=== PATIENT | female | born 1960 | race Caucasian/White ===

== ENCOUNTER 2019-09-25 05:25 | Inpatient (IN) ==
[2019-09-20 12:04] LABS: Basophils # 0.1 10*3/uL (0.0-0.2); Basophils % 0.9 % (0.0-0.8); Eosinophils # 0.2 10*3/uL (0.0-0.87); Eosinophils % 1.8 % (0.00-10.9); Hemoglobin 11.4 GM/DL (12.0-16.0); Immature Granulocytes % 0.2 %; Immature Granulocytes Absolute 0.02 #; Lymphocytes # 2.9 10*3/uL (1.4-4.0); Lymphocytes % 30.8 % (21.3-54.2); Mean Corpuscular Volume 86.6 FL (87-102); Mean Platelet Volume 10.1 FL (9.6-12.0); Neutrophils % 54.3 % (38.7-73.9); Platelet Count 269 T/CUMM (130-400); Red Blood Count 4.39 MC/CUMM (3.8-5.5); Red Cell Distribution Width 14.2 % (9.3-17.3); White Blood Count 9.4 T/CUMM (4-12)
[2019-09-20 12:17] LABS: Apearance,Urine Slightly Hazy (Clear); Bacteria,Urine Moderate /HPF (Few); Bilirubin,Urine Negative (Negative); Blood, Urine Negative (Negative); Glucose,Urine (UA) Negative (Negative); Ketones,Urine Negative (Negative); Mucus,Urine Occasional /LPF (Occasional); Nitrite,Urine Positive (Negative); Protein,Urine Negative; Squamous Epithelial Cell,Urine Occasional /HPF (0-10); Uric Acid Crystals,Urine Occasional /HPF (<1); Urine Color Yellow (Yellow); Urine Specific Gravity 1.019 (1.001-1.035); Urine Urobilinogen < 2.0 EU/DL (0.2-1.0); WBC,Urine 14 /HPF (0-6)
[2019-09-20 12:26] LABS: INR 1.1; PT Patient Result 12.3 SECS (9.6-12.2)
[2019-09-20 12:32] LABS: Bilirubin,Total 1.2 MG/DL (0.2-1.0); Calcium 8.9 MG/DL (8.5-10.1); Osmolality,Calculated 282.1 MOS/KG (273-304)
[2019-09-25] MEDS ORDERED: DIAZEPAM 5 MG TABLET PO ONE (06:00)
[2019-09-25] MEDS ORDERED: FAMOTIDINE 20 MG TABLET PO ONE (06:00)
[2019-09-25] MEDS ORDERED: GABAPENTIN 400 MG CAPSULE PO ONE (06:00)
[2019-09-25] MEDS ORDERED: LACTATED RINGERS 1,000 ML IV SCH (06:00)
[2019-09-25] MEDS ORDERED: ACETAMINOPHEN 500 MG TABLET PO ONE (06:00)
[2019-09-25] MEDS ORDERED: TRANEXAMIC ACID 1,000 MG/10 ML VIAL ONE (06:18)
[2019-09-25] MEDS ORDERED: NEOMYCIN/POLYMYXIN/BACITRACIN OINT 28.4 GM TUBE TOP ONE (06:18)
[2019-09-25] MEDS ORDERED: ACETAMINOPHEN 500 MG TABLET ONE (06:24)
[2019-09-25] MEDS ORDERED: FAMOTIDINE 20 MG TABLET ONE (06:24)
[2019-09-25] MEDS ORDERED: DIAZEPAM 5 MG TABLET ONE (06:24)
[2019-09-25] MEDS ORDERED: VANCOMYCIN 1,000 MG VIAL ONE (06:24)
[2019-09-25] MEDS ORDERED: GABAPENTIN 400 MG CAPSULE ONE (06:24)
[2019-09-25] MEDS ORDERED: DEXAMETHASONE 4 MG/1 ML VIAL ONE (06:26)
[2019-09-25] MEDS ORDERED: LIDOCAINE 1% 5 ML VIAL ONE (06:26)
[2019-09-25] MEDS ORDERED: EPINEPHrine 1 MG/ML VIAL ONE (06:26)
[2019-09-25] MEDS ORDERED: BUPIVACAINE 0.5% 50 ML VIAL ONE (06:26)
[2019-09-25] MEDS ORDERED: VANCOMYCIN INJ 1,000 MG in SODIUM CHLORIDE 0.9% 250 ML IV ONE ×2 (06:30→15:21)
[2019-09-25] MEDS ORDERED: ceFAZolin 2,000 MG in PREMIX 1 EACH IV ONE (06:30)
[2019-09-25] MEDS ORDERED: SCOPOLAMINE 1.5 MG PATCH TRANSDERM ONE ×2 (06:33→06:36)
[2019-09-25] MEDS ORDERED: ONDANSETRON 4 MG/2 ML VIAL IV PRN (07:20)
[2019-09-25] MEDS ORDERED: PROMETHAZINE 25 MG/1 ML VIAL IM PRN (07:20)
[2019-09-25] MEDS ORDERED: DEXTROSE 50% 25 GM/50 ML VIAL IV PRN (07:20)
[2019-09-25] MEDS ORDERED: ZALEPLON 5 MG CAPSULE PO PRN (07:20)
[2019-09-25] MEDS ORDERED: MAGNESIUM HYDROXIDE SUSP 30 ML UDCUP PO PRN (07:20)
[2019-09-25] MEDS ORDERED: diphenhydrAMINE CAP 25 MG CAPSULE PO PRN (07:20)
[2019-09-25] MEDS ORDERED: GLUCAGON 1 MG VIAL IM PRN (07:20)
[2019-09-25] MEDS ORDERED: GLYCOPYRROLATE 0.4 MG/2 ML VIAL ONE (09:01)
[2019-09-25] MEDS ORDERED: LIDOCAINE 2% 5 ML VIAL ONE (09:01)
[2019-09-25] MEDS ORDERED: KETOROLAC 30 MG/1 ML VIAL ONE (09:01)
[2019-09-25] MEDS ORDERED: fentaNYL 100 MCG/2 ML VIAL ONE (09:01)
[2019-09-25] MEDS ORDERED: ONDANSETRON 4 MG/2 ML VIAL ONE (09:01)
[2019-09-25] MEDS ORDERED: PROPOFOL 200 MG/20 ML VIAL IV ONE (09:01)
[2019-09-25] MEDS ORDERED: MIDAZOLAM 2 MG/2 ML VIAL ONE (09:01)
[2019-09-25] MEDS ORDERED: PHENYLEPHRINE 1 MG/10 ML SYRINGE IV ONE (09:02)
[2019-09-25] MEDS ORDERED: SODIUM CHLORIDE 0.9% 100 ML IV ONE (09:02)
[2019-09-25] MEDS ORDERED: LACTATED RINGERS 1,000 ML IV ONE (09:02)
[2019-09-25] MEDS ORDERED: ACETAMINOPHEN 1,000 MG/100 ML VIAL IV ONE (09:02)
[2019-09-25] MEDS ORDERED: ALBUMIN 5% 12.5 GM/250 ML VIAL IV ONE (09:39)
[2019-09-25] MEDS ORDERED: ALBUMIN 5% 12.5 GM in PREMIX 1 EACH IV ONE (09:41)
[2019-09-25] MEDS ORDERED: METOPROLOL TARTRATE 5 MG/5 ML VIAL IV ONE ×3 (10:13→11:12)
[2019-09-25] MEDS ORDERED: DILTIAZEM 50 MG/10 ML VIAL IV ONE ×2 (11:30→11:37)
[2019-09-25] MEDS ORDERED: dilTIAZem Drip 125 MG/125 ML PREMIX IV ONE (11:30)
[2019-09-25] MEDS ORDERED: dilTIAZem Drip 125 MG/125 ML PREMIX IV SCH (12:00)
[2019-09-25] MEDS ORDERED: PNEUMOCOCCAL VACCINE (23 VALENT) 0.5 ML VIAL IM ONE (13:24)
[2019-09-25] MEDS: INSULIN LISPRO 100 UNIT/ML SUBCUT SCH ×4 (13:44→21:46)
[2019-09-25] MEDS: LACTATED RINGERS 1,000 ML IV SCH ×2 (13:45→15:00)
[2019-09-25] MEDS: FLUoxetine 20 MG CAPSULE PO SCH (13:46)
[2019-09-25] MEDS: KETOROLAC 30 MG/1 ML VIAL IV SCH ×3 (13:46→21:36)
[2019-09-25] MEDS: buPROPion XL 150 MG TABLET PO SCH (13:46)
[2019-09-25] MEDS: DOCUSATE SODIUM 100 MG CAPSULE PO SCH ×2 (13:46→21:36)
[2019-09-25] MEDS: CIPROFLOXACIN 500 MG TABLET PO SCH ×2 (13:46→21:36)
[2019-09-25] MEDS: ASCORBIC ACID 500 MG TABLET PO SCH ×2 (14:13→21:36)
[2019-09-25] MEDS: MORPHINE 4 MG/1 ML VIAL IV PRN ×3 (16:23→20:35)
[2019-09-25] MEDS: DILTIAZEM 30 MG TABLET PO SCH ×2 (17:46→21:35)
[2019-09-25] MEDS: ceFAZolin 2,000 MG in PREMIX 1 EACH IV SCH (17:47)
[2019-09-25] MEDS: GABAPENTIN 300 MG CAPSULE PO SCH (21:36)
[2019-09-25] MEDS: rOPINIRole 0.25 MG TABLET PO SCH (21:36)
[2019-09-26] MEDS: LACTATED RINGERS 1,000 ML IV SCH (00:01)
[2019-09-26] MEDS: ceFAZolin 2,000 MG in PREMIX 1 EACH IV SCH (00:04)
[2019-09-26] MEDS: KETOROLAC 30 MG/1 ML VIAL IV SCH (00:45)
[2019-09-26] MEDS: MORPHINE 4 MG/1 ML VIAL IV PRN ×2 (04:20)
[2019-09-26 04:47] LABS: Basophils % 0.3 % (0.0-0.8); Eosinophils # 0.2 10*3/uL (0.0-0.87); Hematocrit 30.3 VOL% (35.7-47.0); Hemoglobin 9.1 GM/DL (12.0-16.0); Immature Granulocytes % 0.4 %; Immature Granulocytes Absolute 0.04 #; Lymphocytes % 9.2 % (21.3-54.2); Mean Corpuscular Volume 86.6 FL (87-102); Mean Platelet Volume 10.1 FL (9.6-12.0); Monocytes % 9.8 % (1.7-12.7); Neutrophils % 78.3 % (38.7-73.9); Platelet Count 195 T/CUMM (130-400); Red Cell Distribution Width 14.7 % (9.3-17.3); White Blood Count 10.3 T/CUMM (4-12)
[2019-09-26 05:10] LABS: Calcium 8.2 MG/DL (8.5-10.1); Osmolality,Calculated 283.3 MOS/KG (273-304)
[2019-09-26] MEDS: FONDAPARINUX 2.5 MG/0.5 ML SYRINGE SUBCUT SCH (06:01)
[2019-09-26] MEDS: LEVOTHYROXINE 88 MCG TABLET PO SCH (06:01)
[2019-09-26] MEDS ORDERED: KETOROLAC 30 MG/1 ML VIAL IV SCH (07:00)
[2019-09-26] MEDS: buPROPion XL 150 MG TABLET PO SCH (08:27)
[2019-09-26] MEDS: GLIMEPIRIDE 2 MG TABLET PO SCH (08:27)
[2019-09-26] MEDS: DILTIAZEM 30 MG TABLET PO SCH ×4 (08:27→21:41)
[2019-09-26] MEDS: CETIRIZINE 10 MG TABLET PO SCH (08:28)
[2019-09-26] MEDS: FLUoxetine 20 MG CAPSULE PO SCH (08:28)
[2019-09-26] MEDS: ASCORBIC ACID 500 MG TABLET PO SCH ×2 (08:28→21:41)
[2019-09-26] MEDS: CIPROFLOXACIN 500 MG TABLET PO SCH ×2 (08:28→21:42)
[2019-09-26] MEDS: DOCUSATE SODIUM 100 MG CAPSULE PO SCH ×2 (08:28→21:42)
[2019-09-26] MEDS: CELECOXIB 200 MG CAPSULE PO SCH (08:28)
[2019-09-26] MEDS: INSULIN LISPRO 100 UNIT/ML SUBCUT SCH ×4 (08:29→21:41)
[2019-09-26] MEDS: GABAPENTIN 300 MG CAPSULE PO SCH (21:40)
[2019-09-26] MEDS: rOPINIRole 0.25 MG TABLET PO SCH (21:40)
[2019-09-27 06:01] LABS: Basophils % 0.3 % (0.0-0.8); Eosinophils # 0.3 10*3/uL (0.0-0.87); Eosinophils % 3.8 % (0.00-10.9); Hematocrit 28.4 VOL% (35.7-47.0); Hemoglobin 8.6 GM/DL (12.0-16.0); Immature Granulocytes % 0.3 %; Immature Granulocytes Absolute 0.03 #; Lymphocytes # 1.3 10*3/uL (1.4-4.0); Mean Corpuscular HGB Conc 30.3 GM/DL (32-36); Mean Corpuscular Volume 85.8 FL (87-102); Mean Platelet Volume 11.1 FL (9.6-12.0); Monocytes % 13.2 % (1.7-12.7); Neutrophils % 67.4 % (38.7-73.9); Platelet Count 173 T/CUMM (130-400); Red Blood Count 3.31 MC/CUMM (3.8-5.5); Red Cell Distribution Width 14.9 % (9.3-17.3)
[2019-09-27 06:20] LABS: Calcium 8.1 MG/DL (8.5-10.1); Osmolality,Calculated 287.8 MOS/KG (273-304)
[2019-09-27] MEDS: LEVOTHYROXINE 88 MCG TABLET PO SCH (06:43)
[2019-09-27] MEDS: FONDAPARINUX 2.5 MG/0.5 ML SYRINGE SUBCUT SCH (06:44)
[2019-09-27] MEDS: INSULIN LISPRO 100 UNIT/ML SUBCUT SCH ×4 (07:51→21:40)
[2019-09-27] MEDS: CETIRIZINE 10 MG TABLET PO SCH (08:15)
[2019-09-27] MEDS: buPROPion XL 150 MG TABLET PO SCH (08:15)
[2019-09-27] MEDS: GLIMEPIRIDE 2 MG TABLET PO SCH (08:15)
[2019-09-27] MEDS: FLUoxetine 20 MG CAPSULE PO SCH (08:15)
[2019-09-27] MEDS: CIPROFLOXACIN 500 MG TABLET PO SCH ×2 (08:15→21:40)
[2019-09-27] MEDS: CELECOXIB 200 MG CAPSULE PO SCH (08:15)
[2019-09-27] MEDS: DILTIAZEM 30 MG TABLET PO SCH ×4 (08:16→21:40)
[2019-09-27] MEDS: DOCUSATE SODIUM 100 MG CAPSULE PO SCH ×2 (08:16→21:40)
[2019-09-27] MEDS: MORPHINE 4 MG/1 ML VIAL IV PRN ×2 (08:26→19:18)
[2019-09-27] MEDS: ASCORBIC ACID 500 MG TABLET PO SCH ×2 (08:43→21:39)
[2019-09-27] MEDS: GABAPENTIN 300 MG CAPSULE PO SCH (21:39)
[2019-09-27] MEDS: rOPINIRole 0.25 MG TABLET PO SCH (21:39)
[2019-09-28 05:36] LABS: Basophils % 0.4 % (0.0-0.8); Eosinophils # 0.4 10*3/uL (0.0-0.87); Eosinophils % 4.3 % (0.00-10.9); Hematocrit 29.8 VOL% (35.7-47.0); Hemoglobin 8.8 GM/DL (12.0-16.0); Immature Granulocytes % 0.2 %; Immature Granulocytes Absolute 0.02 #; Lymphocytes # 1.1 10*3/uL (1.4-4.0); Lymphocytes % 13.4 % (21.3-54.2); Mean Corpuscular HGB Conc 29.5 GM/DL (32-36); Mean Corpuscular Volume 87.1 FL (87-102); Mean Platelet Volume 10.6 FL (9.6-12.0); Monocytes % 12.2 % (1.7-12.7); Neutrophils % 69.5 % (38.7-73.9); Platelet Count 196 T/CUMM (130-400); Red Blood Count 3.42 MC/CUMM (3.8-5.5); Red Cell Distribution Width 14.7 % (9.3-17.3); White Blood Count 8.3 T/CUMM (4-12)
[2019-09-28 06:04] LABS: Calcium 8.3 MG/DL (8.5-10.1); Osmolality,Calculated 285.1 MOS/KG (273-304)
[2019-09-28] MEDS: LEVOTHYROXINE 88 MCG TABLET PO SCH (06:15)
[2019-09-28] MEDS: FONDAPARINUX 2.5 MG/0.5 ML SYRINGE SUBCUT SCH (06:16)
[2019-09-28] MEDS: INSULIN LISPRO 100 UNIT/ML SUBCUT SCH ×2 (07:21→12:11)
[2019-09-28] MEDS ORDERED: MAGNESIUM SULF RIDER 2 GM in PREMIX 1 EACH IV ONE (09:16)
[2019-09-28] MEDS: GLIMEPIRIDE 2 MG TABLET PO SCH (10:28)
[2019-09-28] MEDS: CELECOXIB 200 MG CAPSULE PO SCH (10:28)
[2019-09-28] MEDS: DOCUSATE SODIUM 100 MG CAPSULE PO SCH (10:29)
[2019-09-28] MEDS: buPROPion XL 150 MG TABLET PO SCH (10:29)
[2019-09-28] MEDS: CETIRIZINE 10 MG TABLET PO SCH (10:29)
[2019-09-28] MEDS: FLUoxetine 20 MG CAPSULE PO SCH (10:31)
[2019-09-28] MEDS: ASCORBIC ACID 500 MG TABLET PO SCH (10:31)
[2019-09-28] MEDS: DILTIAZEM 30 MG TABLET PO SCH (10:32)
[2019-09-28] MEDS: CIPROFLOXACIN 500 MG TABLET PO SCH (10:32)
[2019-09-28 12:05] VITALS: BP 111/51
[2019-09-30] MEDS ORDERED: ERGOCALCIFEROL 50,000 UNIT CAPSULE PO SCH (09:00)
== END 2019-09-28 12:40 | disposition home health service (06) | DRG 470 ==
LOC: EDSDCBED → N.SDSINP 05:25 → N.PREADM 05:25 → N.TELES 07:20 → N.PREADM 09:11 → N.3E 09-26 11:20
PROVIDERS: ADMIT Orthopaedic Surgery; ATTEND Orthopaedic Surgery

== ENCOUNTER 2020-07-14 05:44 | Inpatient (IN) ==
[2020-07-14] MEDS ORDERED: VANCOMYCIN INJ 1,000 MG in SODIUM CHLORIDE 0.9% 250 ML IV ONE (06:30)
[2020-07-14] MEDS ORDERED: ceFAZolin 2,000 MG in PREMIX 1 EACH IV ONE (06:30)
[2020-07-14 06:37] LABS: Apearance,Urine Slightly Hazy (Clear); Bacteria,Urine Occasional /HPF (Few); Bilirubin,Urine Negative (Negative); Blood, Urine Negative (Negative); Glucose,Urine (UA) Negative (Negative); Hyaline Casts,Urine 3 /LPF (0-3); Ketones,Urine Negative (Negative); Mucus,Urine Occasional /LPF (Occasional); Nitrite,Urine Positive (Negative); Protein,Urine 30 MG/DL; RBC,Urine 2 /HPF (0-4); Squamous Epithelial Cell,Urine Occasional /HPF (0-10); Urine Color Yellow (Yellow); Urine Specific Gravity 1.025 (1.001-1.035); Urine Urobilinogen < 2.0 EU/DL (0.2-1.0); WBC,Urine 8 /HPF (0-6)
[2020-07-14] MEDS ORDERED: FAMOTIDINE 20 MG TABLET PO ONE (06:55)
[2020-07-14] MEDS ORDERED: ACETAMINOPHEN 500 MG TABLET PO ONE (06:55)
[2020-07-14] MEDS ORDERED: DIAZEPAM 5 MG TABLET PO ONE (06:55)
[2020-07-14] MEDS ORDERED: GABAPENTIN 400 MG CAPSULE PO ONE (06:55)
[2020-07-14] MEDS ORDERED: LACTATED RINGERS 1,000 ML IV SCH (07:00)
[2020-07-14] MEDS ORDERED: LIDOCAINE 2% 5 ML VIAL ONE ×2 (07:07→09:59)
[2020-07-14] MEDS ORDERED: ROPIVACAINE 0.5% 30 ML VIAL ONE ×2 (07:08→10:18)
[2020-07-14] MEDS ORDERED: DEXAMETHASONE 4 MG/1 ML VIAL ONE (07:08)
[2020-07-14] MEDS ORDERED: GABAPENTIN 400 MG CAPSULE ONE (07:27)
[2020-07-14] MEDS ORDERED: DIAZEPAM 5 MG TABLET ONE (07:27)
[2020-07-14] MEDS ORDERED: ACETAMINOPHEN 500 MG TABLET ONE (07:28)
[2020-07-14] MEDS ORDERED: VANCOMYCIN 1,000 MG VIAL ONE (07:28)
[2020-07-14] MEDS ORDERED: FAMOTIDINE 20 MG TABLET ONE (07:28)
[2020-07-14] MEDS ORDERED: DILTIAZEM CD 120 MG CAPSULE PO PRN (08:33)
[2020-07-14] MEDS ORDERED: TAPENTADOL 50 MG PO PRN (08:33)
[2020-07-14] MEDS ORDERED: GLUCAGON 1 MG VIAL IM PRN (08:36)
[2020-07-14] MEDS ORDERED: MORPHINE 4 MG/1 ML VIAL IV PRN ×2 (08:36)
[2020-07-14] MEDS ORDERED: MAGNESIUM HYDROXIDE SUSP 30 ML UDCUP PO PRN (08:36)
[2020-07-14] MEDS ORDERED: ONDANSETRON 4 MG/2 ML VIAL IV PRN ×2 (08:36→09:59)
[2020-07-14] MEDS ORDERED: DEXTROSE 50% 25 GM/50 ML VIAL IV PRN (08:36)
[2020-07-14] MEDS ORDERED: diphenhydrAMINE CAP 25 MG CAPSULE PO PRN (08:36)
[2020-07-14] MEDS ORDERED: BACITRACIN OINT 0.9 GM PACK TOP ONE (09:17)
[2020-07-14] MEDS ORDERED: propofoL 200 MG/20 ML VIAL IV ONE (09:59)
[2020-07-14] MEDS ORDERED: MIDAZOLAM 2 MG/2 ML VIAL ONE (09:59)
[2020-07-14] MEDS ORDERED: ONDANSETRON 4 MG/2 ML VIAL ONE (09:59)
[2020-07-14] MEDS ORDERED: MORPHINE 10 MG/1 ML VIAL ONE (09:59)
[2020-07-14] MEDS ORDERED: fentaNYL 100 MCG/2 ML VIAL ONE (09:59)
[2020-07-14] MEDS ORDERED: TRANEXAMIC ACID 1,000 MG/10 ML VIAL ONE (10:00)
[2020-07-14] MEDS: MORPHINE 10 MG/1 ML VIAL IV PRN ×5 (10:00→10:40)
[2020-07-14] MEDS ORDERED: KETOROLAC 30 MG/1 ML VIAL ONE (10:17)
[2020-07-14] MEDS: KETOROLAC 30 MG/1 ML VIAL IV SCH ×3 (10:18→21:30)
[2020-07-14] MEDS ORDERED: MEPERIDINE 25 MG/1 ML VIAL IV ONE (10:52)
[2020-07-14] MEDS: LACTATED RINGERS 1,000 ML IV SCH (11:03)
[2020-07-14] MEDS: FLUoxetine 20 MG CAPSULE PO SCH (12:53)
[2020-07-14] MEDS: CETIRIZINE 10 MG TABLET PO SCH (12:53)
[2020-07-14] MEDS: ASCORBIC ACID 500 MG TABLET PO SCH ×2 (12:53→21:30)
[2020-07-14] MEDS: DOCUSATE SODIUM 100 MG CAPSULE PO SCH ×2 (12:53→21:30)
[2020-07-14] MEDS: MULTIVITAMIN (CENTRUM) TABLET PO SCH (12:53)
[2020-07-14] MEDS: LEVOTHYROXINE 100 MCG TABLET PO SCH (12:53)
[2020-07-14] MEDS: buPROPion SR 150 MG TABLET PO SCH (12:54)
[2020-07-14] MEDS: ceFAZolin 2,000 MG in PREMIX 1 EACH IV SCH ×2 (12:54→21:29)
[2020-07-14] MEDS: INSULIN LISPRO 100 UNIT/ML SUBCUT SCH ×3 (12:54→21:30)
[2020-07-14] MEDS: APIXABAN 2.5 MG TABLET PO SCH (21:30)
[2020-07-14] MEDS: GABAPENTIN 300 MG CAPSULE PO SCH (21:30)
[2020-07-14] MEDS: rOPINIRole 0.25 MG TABLET PO SCH (21:30)
[2020-07-15] MEDS: KETOROLAC 30 MG/1 ML VIAL IV SCH (03:20)
[2020-07-15 04:42] LABS: Basophils % 0.2 % (0.0-0.8); Eosinophils # 0.1 10*3/uL (0.0-0.87); Eosinophils % 0.4 % (0.00-10.9); Hematocrit 32.7 VOL% (35.7-47.0); Hemoglobin 9.8 GM/DL (12.0-16.0); Immature Granulocytes % 0.4 %; Immature Granulocytes Absolute 0.05 #; Lymphocytes # 1.7 10*3/uL (1.4-4.0); Lymphocytes % 12.9 % (21.3-54.2); Mean Corpuscular Volume 81.3 FL (87-102); Mean Platelet Volume 10.4 FL (9.6-12.0); Neutrophils % 74.1 % (38.7-73.9); Platelet Count 224 T/CUMM (130-400); Red Blood Count 4.02 MC/CUMM (3.8-5.5); Red Cell Distribution Width 15.8 % (9.3-17.3); White Blood Count 13.3 T/CUMM (4-12)
[2020-07-15 05:01] LABS: Osmolality,Calculated 276.7 MOS/KG (273-304)
[2020-07-15] MEDS: INSULIN LISPRO 100 UNIT/ML SUBCUT SCH ×4 (07:40→21:28)
[2020-07-15] MEDS: LACTATED RINGERS 1,000 ML IV SCH (07:54)
[2020-07-15] MEDS: ASCORBIC ACID 500 MG TABLET PO SCH ×2 (10:50→21:27)
[2020-07-15] MEDS: buPROPion SR 150 MG TABLET PO SCH (10:50)
[2020-07-15] MEDS: FLUoxetine 20 MG CAPSULE PO SCH (10:51)
[2020-07-15] MEDS: CETIRIZINE 10 MG TABLET PO SCH (10:51)
[2020-07-15] MEDS: APIXABAN 2.5 MG TABLET PO SCH ×2 (10:51→21:28)
[2020-07-15] MEDS: GLIMEPIRIDE 2 MG TABLET PO SCH (10:51)
[2020-07-15] MEDS: DOCUSATE SODIUM 100 MG CAPSULE PO SCH ×2 (10:51→21:27)
[2020-07-15] MEDS: MULTIVITAMIN (CENTRUM) TABLET PO SCH (10:51)
[2020-07-15] MEDS: LEVOTHYROXINE 100 MCG TABLET PO SCH (10:51)
[2020-07-15] MEDS: GABAPENTIN 300 MG CAPSULE PO SCH (21:27)
[2020-07-15] MEDS: rOPINIRole 0.25 MG TABLET PO SCH (21:28)
[2020-07-16 05:43] LABS: Basophils # 0.1 10*3/uL (0.0-0.2); Basophils % 0.6 % (0.0-0.8); Eosinophils # 0.3 10*3/uL (0.0-0.87); Eosinophils % 2.7 % (0.00-10.9); Hematocrit 29.3 VOL% (35.7-47.0); Hemoglobin 9.1 GM/DL (12.0-16.0); Immature Granulocytes % 0.5 %; Immature Granulocytes Absolute 0.05 #; Lymphocytes % 19.2 % (21.3-54.2); Mean Corpuscular HGB Conc 31.1 GM/DL (32-36); Mean Corpuscular Volume 79.8 FL (87-102); Mean Platelet Volume 10.7 FL (9.6-12.0); Monocytes % 14.8 % (1.7-12.7); Neutrophils % 62.2 % (38.7-73.9); Platelet Count 206 T/CUMM (130-400); Red Blood Count 3.67 MC/CUMM (3.8-5.5); Red Cell Distribution Width 16.3 % (9.3-17.3); White Blood Count 10.5 T/CUMM (4-12)
[2020-07-16] MEDS: INSULIN LISPRO 100 UNIT/ML SUBCUT SCH ×2 (07:42→12:02)
[2020-07-16] MEDS: GLIMEPIRIDE 2 MG TABLET PO SCH (08:57)
[2020-07-16] MEDS: buPROPion SR 150 MG TABLET PO SCH (08:57)
[2020-07-16] MEDS: MULTIVITAMIN (CENTRUM) TABLET PO SCH (08:57)
[2020-07-16] MEDS: ASCORBIC ACID 500 MG TABLET PO SCH (08:57)
[2020-07-16] MEDS: LEVOTHYROXINE 100 MCG TABLET PO SCH (08:58)
[2020-07-16] MEDS: DOCUSATE SODIUM 100 MG CAPSULE PO SCH (08:58)
[2020-07-16] MEDS: FLUoxetine 20 MG CAPSULE PO SCH (08:58)
[2020-07-16] MEDS: APIXABAN 2.5 MG TABLET PO SCH (08:58)
[2020-07-16] MEDS: CETIRIZINE 10 MG TABLET PO SCH (08:58)
[2020-07-16 11:18] VITALS: BP 133/64
[2020-07-16] MEDS ORDERED: ERTAPENEM 1,000 MG in SODIUM CHLORIDE 0.9% 100 ML IV ONE (15:00)
== END 2020-07-16 15:47 | disposition home health service (06) | DRG 470 ==
LOC: N.OR 05:44 → N.SDSINP 05:47 → N.3E 11:39
PROVIDERS: ADMIT Orthopaedic Surgery; ATTEND Orthopaedic Surgery